=== PATIENT | female | born 1980 | race Caucasian/White ===

== ENCOUNTER 2017-06-12 17:38 | Emergency (ER) | payer OTHER ==
[~2017-06-12] VITALS: Ht 162.6 cm; Wt 73.0 kg
[2017-06-12 17:43] VITALS: PULSE 89; TEMP 36.5; O2SAT 99; Ht 162.6 cm; Wt 73.0 kg
[2017-06-12] MEDS ORDERED: OXYC1TAB3 PO (18:04)
[2017-06-12] MEDS ORDERED: CLIN300C2 PO (18:04)
[2017-06-12] MEDS ORDERED: IBUP-103 PO (18:13)
--- NOTE | 2017-06-12 18:14 | EMERGENCY ROOM VISIT NOTE ---
History First contact with patient: 17:50 Chief Complaint: DENTAL PAIN Stated Complaint: MOUTH,TOOTH AND GUM, JAW AND NECK PAIN Nursing Triage Summary: Pt states she has a cavity on the right lower back tooth and the filling came out. C/O Pain. Saw Sandie Hare and was referred to facial surgeon. History of Present Illness The patient is a 36 year old female who presents to the Emergency Room with complaints of right lower dental pain. The patient reports that she has had discomfort for the past week. She was seen and [facility] this past Wednesday , and was referred to an oral surgeon. She reports that she is awaiting insurance approval. The patient reports that she did start taking some penicillin G antibiotics of her boyfriend. She only took a few days' worth, but does report decreasing facial swelling. The patient denies any fevers or chills, difficulty swallowing or headaches. She does report generalized right facial pain. She rates her discomfort a 10 out of 10. He has been using multiple OTC products without relief, including Tylenol. Review of Systems 10 system review was performed and was negative except for pertinent positives and negatives as indicated in history of present illness Past Medical/Surgical History Medical Problems: (1) Jaw pain (2) Lymphadenitis, acute (3) Malaise and fatigue (4) Malaise and fatigue (5) Methadone maintenance therapy patient (6) Opioid dependence in remission (7) Otalgia of left ear (8) Pyelonephritis (9) Pyelonephritis (10) Right ankle sprain (11) Sinusitis, acute (12) Sinusitis, acute (13) Viral illness Surgical Problems: (1) H/O tubal ligation Social History Problems: (1) IVDU (intravenous drug user) Family History Unremarkable Social History Smoking Status: Current Every Day Smoker Alcohol Use: none Drug Use: none Marital Status: single Housing Status: lives with family Occupation Status: employed Current/Historical Medications Scheduled Clindamycin Hcl (Cleocin), 300 MG PO QID Scheduled PRN Oxycodone Ir (Roxicodone Ir), 1-2 TAB PO Q4H PRN for Pain Physical Exam Vital Signs Date Time Temp Pulse Resp B/P (MAP) Pulse Ox O2 Delivery O2 Flow Rate FiO2 06/12/17 17:43 36.5 89 17 99 Room Air Physical Exam CONSTITUTIONAL: Healthy and well nourished. HEENT: Normocephalic, atraumatic. Pupils equal, round and reactive. No facial edema noted. Ears and nares are clear. OROPHARYNX: The patient has notable destruction of her right mandibular molar # 31. No significant gingival erythema, fluctuance or pointing. No evidence for Damian's angina or retropharyngeal abscess. NECK: Full active range of motion without discomfort. LYMPHATICS: No cervical chain, submandibular or submental adenopathy. RESPIRATORY: Clear to auscultation bilaterally with no wheezing, crackles, rhonchi or stridor. CARDIOVASCULAR: Regular rate and rhythm with no murmurs, rubs or gallops. MUSCULOSKELETAL: Full range of motion of all joints without discomfort. INTEGUMENTARY: No rash or other significant dermatologic conditions noted. NEUROLOGIC: Facial sensations are intact. Medical Decision & Procedures ED Course Patient history and physical exam were performed. Nurse's notes were reviewed. Vital signs were reviewed and were normal. The patient was provided prescriptions for Cleocin and OxyIR 5 mg. She was encouraged to also take ibuprofen and Tylenol in alternating fashion for baseline pain relief. The [place] Prescription Drug Monitoring Program was queried with no history within the past year. The patient was instructed to continue follow-up with her oral surgeon for definitive management. She may also contact her PCP as needed for further antibiotic and pain management. She was advised that the emergency department does not provide dental services, referrals or ongoing dental pain management. The patient voiced understanding of all discharge instructions, and rated her discomfort an 8 out of 10 at the time of discharge. Medical Decision [place] Drug Monitoring Program Search Results: patient reviewed within database, no issues identified Medication Reconcilliation Current Medication List: was personally reviewed by mi Blood Pressure Screening Patient's blood pressure: Normal blood pressure Impression Primary Impression: Pain, dental Departure Information Dispostion Home / Self-Care Prescriptions Oxycodone Ir (Roxicodone Ir) 5 Mg Tab 1-2 TAB PO Q4H Y for Pain, #24 TAB For Initial Treatment Prov: Calixto Porras PA 06/12/17 Clindamycin Hcl (CLEOCIN) 300 Mg Cap 300 MG PO QID for 10 Days, #40 CAP Prov: Calixto Porras PA 06/12/17 Referrals Enedelia Kiser, C.R.N.P (PCP) No Doctor, Assigned Forms HOME CARE DOCUMENTATION FORM, IMPORTANT VISIT INFORMATION Patient Instructions My [facility] Additional Instructions Complete all Cleocin antibiotics as prescribed. Ibuprofen 800 mg and/or Tylenol 1000 mg every 8 hours. You may also alternate these medications for more effective pain relief: Ibuprofen --4 HRS--> Tylenol --4 HRS--> ibuprofen --4 HRS--> Tylenol .... OxyIR if needed for worse pain. Do not drink or drive while taking OxyIR. Soft foods. YOU MUST SEE YOUR ORAL SURGEON FOR DEFINITIVE CARE. THE EMERGENCY DEPARTMENT DOES NOT PROVIDE DENTAL SERVICES, REFERRALS OR CHRONIC DENTAL PAIN MANAGEMENT. YOU MAY ALSO CALL YOUR FAMILY DOCTOR FOR PAIN MANAGEMENT UNTIL YOU SEE YOUR DENTIST.
== END 2017-06-12 18:12 | disposition home or self-care (01) ==
LOC: C.EDB 17:41 → C.EDD 18:12
DX: K08.89 Other specified disorders of teeth and supporting structures (principal); F17.210 Nicotine dependence, cigarettes, uncomplicated; R51 Headache

== ENCOUNTER 2017-07-03 05:44 | Emergency (ER) | payer OTHER ==
[~2017-07-03] VITALS: Ht 165.1 cm; Wt 73.3 kg
[~2017-07-03 05:44] MED LIST: IBUP-103 PO; OXYC1TAB3 PO
[2017-07-03 05:48] VITALS: BP 120/86; PULSE 97; TEMP 36.6; O2SAT 97; Ht 165.1 cm; Wt 73.3 kg
[2017-07-03] MEDS ORDERED: OXYCODONE HCL IR 5 MG TAB (IMMEDIATE RELEASE) PO STA (06:09)
--- NOTE | 2017-07-03 06:11 | EMERGENCY ROOM VISIT NOTE ---
History Report prepared by Kyree: La Kenny Under the Supervision of: Dr. Trev Diaz M.D. First contact with patient: 05:53 Chief Complaint: DENTAL PAIN Stated Complaint: SEVERE TOOTH PAIN,SWELLING,REDDNESS,JAW/NECK PAIN Nursing Triage Summary: Pt reports right lower dental pain x 1 month. Pt states, "I was here about three weeks ago. The abx is all gone. I am getting them surgically removed on . I can't swallow or turn my head." History of Present Illness The patient is a 36 year old female who presents to the Emergency Room with complaints of worsening dental pain starting a month ago. The patient states that she has been here a few times for the pain. She states that she has seen two dentists who said that they cannot pull the teeth that are causing the problem and that they need surgically removed. She reports that she has an appointment to get them removed in five days. She states that she feels like her whole neck and jaw are swollen. She states that the tooth has chipped and she has used all her pain medication. She reports the pain being worse when she bends down and with movement. The patient notes that she has been off an antibiotic off 3 days and thinks that this has something to do with it. The patient complains of difficulty chewing and swallowing food. The patient denies nausea, vomiting, and fever. Source of History: patient Onset: a month ago Position: teeth Quality: other (swollen) Timing: worsening Modifying Factors (Worsening): movement, other (bending over) Associated Symptoms: No fevers, No nausea, No vomiting Note: The patient complains of difficulty swallowing and chewing. Review of Systems See HPI for pertinent positives & negatives. A total of 10 systems reviewed and were otherwise negative. Past Medical & Surgical Medical Problems: (1) Jaw pain (2) Lymphadenitis, acute (3) Malaise and fatigue (4) Malaise and fatigue (5) Methadone maintenance therapy patient (6) Opioid dependence in remission (7) Otalgia of left ear (8) Pyelonephritis (9) Pyelonephritis (10) Right ankle sprain (11) Sinusitis, acute (12) Sinusitis, acute (13) Viral illness Surgical Problems: (1) H/O tubal ligation Social History Problems: (1) IVDU (intravenous drug user) Family History No pertinent family history Social History Smoking Status: Current Every Day Smoker Alcohol Use: none Drug Use: none Marital Status: single Housing Status: lives with family Occupation Status: employed Current/Historical Medications Scheduled Clindamycin Hcl (Cleocin), 300 MG PO QID Scheduled PRN Ibuprofen Tab (Advil), 800 MG PO Q8 PRN for Pain Oxycodone Ir (Roxicodone Ir), 1-2 TAB PO Q4H PRN for Pain Allergies Coded Allergies: No Known Allergies (Verified , 08/07/16) Physical Exam Vital Signs Date Time Temp Pulse Resp B/P (MAP) Pulse Ox O2 Delivery O2 Flow Rate FiO2 07/03/17 05:48 36.6 97 20 120/86 97 Room Air Physical Exam GENERAL: Patient is uncomfortable appearing and in mild distress. HEENT: No acute trauma, normocephalic atraumatic, mucous membranes moist, no nasal congestion, no scleral icterus. Tenderness over right lower jaw and extending under jaw. No fluctuance. No crepitus. No swelling. No protrusion of tongue. Has fractured carious tooth in the right lower jaw. NECK: No stridor, no adenopathy, no meningismus, trachea is midline. Mild tenderness along the right lateral neck without fluctuance nor masses appreciated. LUNGS: No dyspnea. Clear to auscultation and equal bilaterally. No wheeze, no rhonchi. HEART: Regular rate and rhythm. No murmurs, rubs, gallops appreciated. ABDOMEN: Soft, nontender, bowel sounds positive, no masses appreciated, no peritonitis. BACK: No midline tenderness, no CVA tenderness EXTREMITIES: Normal motion all extremities, no cyanosis, no edema. NEUROLOGIC: Alert and oriented, no acute motor or sensory deficits, no focal weakness, cranial nerves grossly intact. SKIN: No rash, no jaundice, no diaphoresis. Medical Decision & Procedures Medications Administered Medications (Trade) Dose Ordered Sig/Nia Route Start Time Stop Time Status Last Admin Dose Admin Oxycodone HCl (Roxicodone Immediate Rel Tab) 5 mg NOW STAT PO 07/03/17 06:09 07/03/17 06:10 DC 07/03/17 06:25 5 MG Clindamycin HCl (Cleocin Cap) 450 mg ONE ONCE PO 07/03/17 06:15 07/03/17 06:16 DC 07/03/17 06:24 450 MG ED Course 0554: The patient was evaluated in room A2. A complete history and physical exam was performed. 0604: I spoke with the patient. She admits that she was addicted to methadone at one time and filled her prescription for Buprenorphine, but hasn't taken it. I stated that I would not be comfortable to send her with narcotics, but would give her a one time dose here and then be monitored. 0609: Ordered Oxycodone HCl 5 mg PO. 0615: Ordered Cleocin Cap 450 mg PO. 0633: Reevaluated the patient. Discussed results and discharge instructions: She verbalized understanding and agreement. The patient is ready for discharge. Medical Decision 36 yr old female with right posterior lower molar fracture for which she was seen 3 weeks ago for same. She is clearly upset with TTP pretty much with palpation of anywhere, but no significant swelling, crepitus, nor abscess appreciated. She does not exhibit evidence of Damian's at this time. She is not septic and she has no evidence of breathing/swallowing dysfunction. I would assume infection has re-occured but without swelling nor other clear findings I do not feel that CT imaging is indicated, nor is there evidence of need to further evaluation airway. On review of PDMP it is clear she has received 2 controlled rx in last few weeks. She furthermore admits long history of drug addiction after I discussed my concerns with her. I made it clear I would be willing to treat her pain while here in ED, but I do not feel it appropriate to further prescribe narcotics in this setting. She was clearly not very happy with this but I explained at length the risk of with these medications, to the point of discussion how it was recently made a National Emergency by the [place] president. She has appointment next week for extraction and I heavily advised she keep that. Medication Reconcilliation Current Medication List: was personally reviewed by me Blood Pressure Screening Patient's blood pressure: Normal blood pressure Blood pressure disposition: Did not require urgent referral Impression Primary Impression: Infected dental caries Scribe Attestation The scribe's documentation has been prepared under my direction and personally reviewed by me in its entirety. I confirm that the note above accurately reflects all work, treatment, procedures, and medical decision making performed by me. Departure Information Dispostion Home / Self-Care Prescriptions Clindamycin Hcl (CLEOCIN) 300 Mg Cap 300 MG PO QID for 10 Days, #40 CAP Prov: Trev Diaz M.D. 07/03/17 Referrals Enedelia Kiser C.R.N.P (PCP) Forms HOME CARE DOCUMENTATION FORM, IMPORTANT VISIT INFORMATION Patient Instructions ED Abscess Dental, My [facility]
[2017-07-03] MEDS ORDERED: CLIN300C2 PO (06:12)
[2017-07-03] MEDS ORDERED: CLINDAMYCIN HCL 150 MG CAP PO ONE (06:15)
== END 2017-07-03 06:32 | disposition home or self-care (01) ==
LOC: C.EDB 05:45 → C.EDA 06:32
DX: K02.9 Dental caries, unspecified (principal); F17.200 Nicotine dependence, unspecified, uncomplicated

== ENCOUNTER 2022-01-26 16:15 | Inpatient (IN) ==
[2022-01-26 17:24] LABS: Appearance Urine Cloudy (Clear); Bacteria Urine Automated 2+ (Negative); Bilirubin Urine Negative (Negative); Blood Urine 2+ (Negative); Color Urine Yellow; Epithelial Cell Urine Auto >30 /lpf (0-5); Glucose Urine UA Negative (Negative); Ketones Urine Negative (Negative); Leukocyte Esterase Urine 1+ (Negative); Nitrite Urine Negative (Negative); Protein Urine Negative (Negative); RBC Urine Automated 0-4 /hpf (0-4); Specific Gravity Urine 1.006 (1.000-1.030); Urobilinogen Urine Negative (Negative); WBC Urine Automated >30 /hpf (0-5); pH Urine 6.5 (4.5-7.5)
[2022-01-26 17:41] LABS: Basophils # (auto) 0.03 K/uL (0-0.2); Basophils % (auto) 0.4 %; Eosinophils # (auto) 0.07 K/uL (0-0.5); Eosinophils % (auto) 0.9 %; Hematocrit (blood only) 41.3 % (37-47); Hemoglobin 14.6 g/dL (12.0-16.0); Immature Granulocytes # (auto) 0.01 K/uL (0.00-0.02); Immature Granulocytes % (auto) 0.1 %; Lymphocytes # (auto) 1.47 K/uL (1.2-3.4); Mean Corpuscular Hemoglobin 31.3 pg (25-34); Mean Corpuscular Hgb Conc 35.4 g/dL (32-36); Mean Corpuscular Volume 88.6 fL (80-100); Mean Platelet Volume 9.7 fL (7.4-10.4); Monocytes # (auto) 0.63 K/uL (0.11-0.59); Monocytes % (auto) 8.2 %; Neutrophils # (auto) 5.52 K/uL (1.4-6.5); Neutrophils % (auto) 71.4 %; Platelet Count 299 K/uL (130-400); RDW Coefficient of Variation 13.1 % (11.5-14.5); RDW Standard Deviation 42.4 fL (36.4-46.3); Red Blood Count 4.66 M/uL (4.2-5.4); White Blood Count 7.73 K/uL (4.8-10.8)
--- NOTE | 2022-01-26 17:58 | Emergency Department Note ---
Impression & Plan Mood disorder, Back pain, Suicidal ideation ED Provider Note NAME: SANTOSH HILLS AGE: 41 SEX: F : 1980 ARRIVES VIA: Walk-In INFORMANT: Patient ED PROVIDER(S): Mihir Gonzalez DO CHIEF COMPLAINT: depression HPI: Patient is a 41-year-old female with a past medical history of an admission to the [facility] for suicidal ideations who presents the ER for 302 petition. She notes that she is very upset as she has had chronic lower back pain for the past week as well as diffuse paresthesias for the past month. Pain does not change with any movement or lifting in the back. She notes it comes and goes with her anxiety. She notes she has been feeling sick and no one can figure out what is wrong with her. She notes she can no longer deal with this. She is unable to go to work. She admits to feeling depressed. 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 She has been evaluated multiple times previously within the past month including CTs of the head and belly which were unremarkable. On a telehealth she may statements that she was going to shoot herself and disconnected. She admits to being worked up extensively. Pain does not change with any movement or lifting. She notes it comes and goes with her anxiety. ROS: See above HPI for pertinent positives & negatives. A total of 10 systems reviewed and were otherwise negative. PAST MEDICAL HISTORY:See Below PAST SURGICAL HISTORY:See Below FAMILY HISTORY:See Below SOCIAL HISTORY:See Below HOME MEDICATIONS:See Below ALLERGIES:See Below VITALS:See Below PHYSICAL EXAMINATION: GENERAL: Sitting up in bed, alert, well appearing, well nourished, no distress, non-toxic EYE EXAM: normal conjunctiva. PERRL and EOM's grossly intact. OROPHARYNX: no exudate, no erythema, lips, buccal mucosa, and tongue normal and mucous membranes are moist NECK: supple, no nuchal rigidity, no adenopathy, non-tender LUNGS: Clear to auscultation. Normal chest wall mechanics HEART: no murmurs, S1 normal and S2 normal ABDOMEN: abdomen soft, non-tender, normo-active bowel sounds, no masses, no rebound or guarding. UPPER EXTREMITIES: upper extremities are grossly normal. LOWER EXTREMITIES: Flexion and extension of the hips, knees, ankles, and EHL 5/5 bilaterally. Gross sensation is intact. DPs are 2/4 bilateral. NEURO EXAM: Normal sensorium, cranial nerves II-XII grossly intact, normal speech, no gross weakness of arms, no gross weakness of legs. PSYCH: Denies any suicidal or homicidal ideations to myself but admits to suicidal thoughts for the past week to her psychiatric rn transitional care. Denies any auditory visual hallucinations. MEDICAL DECISION MAKING: Patient is a 41-year-old female who presents ER for back pain which does not change with twisting turning or bending. She notes it comes and goes with her anxiety. She is completely neurologically intact. No other complaints. Denies suicidal ideations to myself but admitted them to her psychiatric rn transitional care and made suicidal statements to Vishal Velasquez earlier today. But patient showed no significant leukocytosis or anemia. BMP Nicolo LFTs were unremarkable. States was negative. UA was clearly contaminated. She has no urinary symptoms. Recent culture was contaminated earlier several days ago. She has a recent CT of the head was negative. Recent CT of the abdomen pelvis which showed a normal spine. No need for additional imaging at this time. She is neurologically intact. She is medically stable. She was updated at bedside. 302 was signed and she was admitted to 3 S. Triage Nursing notes reviewed. Limited review of prior medical records performed Vital Signs: reviewed and remarkable for tachy Differential diagnosis: Mood disorder, infection, hypoglycemia, electrolyte abnormalities, cardiac sources, intracerebral event, toxicologic, trauma, neurologic, as well as other pathologies. ER treatment provided: See below Diagnostics interpreted by me: ECG: none Laboratory studies: As stated above and show below. Imaging studies: See below Consultation(s): none Procedures: none Critical Care: None Past Med/Surg History Medical History No pertinent family history Pyelonephritis Surgical History No pertinent past surgical history Social History Smoking Status: Current every day smoker Tobacco Type: Cigarettes Preferred Language: Latvian Feels Safe at Home: No Allergies Allergies Allergy/AdvReac Type Severity Reaction Status Date / Time Sulfa (Sulfonamide Allergy Unknown CAN'T Verified 01/24/22 10:56 Antibiotics) REMEMBER Home Meds Home Medications Medication Instructions Recorded Confirmed buprenorphine HCl 8 mg sublingual 2 mg SUBLINGUAL DAILY 12/27/21 01/24/22 tablet nitrofurantoin 100 mg PO DAILY 01/24/22 01/24/22 monohydrate/macrocrystals 100 mg capsule Previous Rx's Medication Instructions Recorded hydroxyzine HCl 25 mg tablet 25 mg PO Q6H PRN #20 tab 01/10/22 Results & Data (ED) Vital Signs Vital Signs - 24 hr 01/26/22 16:32 01/26/22 18:57 Temperature 36.8 C Temperature Source Temporal Artery Scan Pulse Rate 100 H Pulse Rate [Finger] 98 H Pulse Rhythm Regular Pulse Strength Normal Respiratory Rate 20 16 Respiratory Effort / Characteristics Non-Labored Spontaneous Non-Labored Respiratory Depth Normal Normal Respiratory Pattern Regular Blood Pressure 132/88 Blood Pressure [Right Arm] 125/91 Blood Pressure Mean 102 Blood Pressure Mean [Right Arm] 102 Blood Pressure Position Sitting Pulse Oximetry 99 99 Oxygen Delivery Method Room Air Room Air Sepsis Recent Fever Within 48 Hours No Sepsis New/Unexplained Change in Mental Status N/A Sepsis Action Taken by Nursing No Action Required Laboratory Data Result diagrams: 01/26/22 17:23 01/26/22 17:23 Lab Results 01/26/22 01/26/22 01/26/22 Range/Units 16:40 16:40 16:49 WBC (4.8-10.8) K/uL RBC (4.2-5.4) M/uL Hgb (12.0-16.0) g/dL Hct (37-47) % MCV (80-100) fL MCH (25-34) pg MCHC (32-36) g/dL RDW Std Deviation (36.4-46.3) fL RDW Coeff of Gregory (11.5-14.5) % Plt Count (130-400) K/uL MPV (7.4-10.4) fL Immature Gran % (Auto) % Neut % (Auto) % Lymph % (Auto) % [place] % (Auto) % Eos % (Auto) % Baso % (Auto) % Neut # (Auto) (1.4-6.5) K/uL Lymph # (Auto) (1.2-3.4) K/uL [place] # (Auto) (0.11-0.59) K/uL Eos # (Auto) (0-0.5) K/uL Baso # (Auto) (0-0.2) K/uL Immature Gran # (Auto) (0.00-0.02) K/uL Sodium (136-145) mmol/L Potassium (3.5-5.1) mmol/L Chloride (98-107) mmol/L Carbon Dioxide (21-32) mmol/L Anion Gap (3-11) BUN (6-23) mg/dl Creatinine (0.6-1.2) mg/dl Est Cr Clr Drug Dosing ml/min Est GFR ( Amer) ml/min Est GFR (Non-Af Amer) ml/min BUN/Creatinine Ratio (10-20) Glucose (70-99(Fasting)) mg/dl Calcium (8.5-10.1) mg/dl Total Bilirubin (0.2-1.0) mg/dl AST (13-39) U/L ALT (7-52) U/L Alkaline Phosphatase (34-104) U/L Total Protein (6.0-8.3) gm/dl Albumin (3.4-5.0) gm/dl Globulin (2.5-4.0) gm/dl Albumin/Globulin Ratio (0.9-2) TSH (0.300-4.500) uIu/ml Urine Color Yellow Urine Appearance Cloudy A (Clear) Urine pH 6.5 (4.5-7.5) Ur Specific Downing 1.006 (1.000-1.030) Urine Protein Negative (Negative) Urine Glucose (UA) Negative (Negative) Urine Ketones Negative (Negative) Urine Blood 2+ H (Negative) Urine Nitrite Negative (Negative) Urine Bilirubin Negative (Negative) Urine Urobilinogen Negative (Negative) Ur Leukocyte Esterase 1+ H (Negative) Urine WBC (Auto) >30 H (0-5) /hpf Urine RBC (Auto) 0-4 (0-4) /hpf U Hyaline Cast (Auto) Not Reportable U Epithel Cells (Auto) >30 H (0-5) /lpf Urine Bacteria (Auto) 2+ H (Negative) POC Ur Test NEG (NEG) Salicylates (3.0-30) mg/dl Urine Opiates Screen Neg (Neg) Ur Methadone, Qual Neg (Neg) Acetaminophen (10-30) ug/ml Urine Barbiturates Neg (Neg) Ur Phencyclidine (PCP) Neg (Neg) U Amphetamin/Meth Scrn Pos H (Neg) MDMA (Ecstasy) Screen Neg (Neg) U Benzodiazepines Scrn Neg (Neg) Ur Cocaine Metabolite Neg (Neg) U Marijuana (THC) Screen Neg (Neg) Ethyl Alcohol mg/dL (<10.0) mg/dl SARS-CoV-2, RNA, NAAT (NEGATIVE) 01/26/22 01/26/22 01/26/22 Range/Units 17:23 17: 17: WBC 7.73 (4.8-10.8) K/uL RBC 4.66 (4.2-5.4) M/uL Hgb 14.6 (12.0-16.0) g/dL Hct 41.3 (37-47) % MCV 88.6 (80-100) fL MCH 31.3 (25-34) pg MCHC 35.4 (32-36) g/dL RDW Std Deviation 42.4 (36.4-46.3) fL RDW Coeff of Gregory 13.1 (11.5-14.5) % Plt Count 299 (130-400) K/uL MPV 9.7 (7.4-10.4) fL Immature Gran % (Auto) 0.1 % Neut % (Auto) 71.4 % Lymph % (Auto) 19.0 % [place] % (Auto) 8.2 % Eos % (Auto) 0.9 % Baso % (Auto) 0.4 % Neut # (Auto) 5.52 (1.4-6.5) K/uL Lymph # (Auto) 1.47 (1.2-3.4) K/uL [place] # (Auto) 0.63 H (0.11-0.59) K/uL Eos # (Auto) 0.07 (0-0.5) K/uL Baso # (Auto) 0.03 (0-0.2) K/uL Immature Gran # (Auto) 0.01 (0.00-0.02) K/uL Sodium 140 (136-145) mmol/L Potassium 3.7 (3.5-5.1) mmol/L Chloride 107 (98-107) mmol/L Carbon Dioxide 26 (21-32) mmol/L Anion Gap 7 (3-11) BUN 7 (6-23) mg/dl Creatinine 0.72 (0.6-1.2) mg/dl Est Cr Clr Drug Dosing 85.1 ml/min Est GFR ( Amer) 120.6 ml/min Est GFR (Non-Af Amer) 104.0 ml/min BUN/Creatinine Ratio 9.7 L (10-20) Glucose 90 (70-99(Fasting)) mg/dl Calcium 9.6 (8.5-10.1) mg/dl Total Bilirubin 1.2 H (0.2-1.0) mg/dl AST 11 L (13-39) U/L ALT 11 (7-52) U/L Alkaline Phosphatase 67 (34-104) U/L Total Protein 7.3 (6.0-8.3) gm/dl Albumin 4.5 (3.4-5.0) gm/dl Globulin 2.8 (2.5-4.0) gm/dl Albumin/Globulin Ratio 1.6 (0.9-2) TSH 1.474 (0.300-4.500) uIu/ml Urine Color Urine Appearance (Clear) Urine pH (4.5-7.5) Ur Specific Downing (1.000-1.030) Urine Protein (Negative) Urine Glucose (UA) (Negative) Urine Ketones (Negative) Urine Blood (Negative) Urine Nitrite (Negative) Urine Bilirubin (Negative) Urine Urobilinogen (Negative) Ur Leukocyte Esterase (Negative) Urine WBC (Auto) (0-5) /hpf Urine RBC (Auto) (0-4) /hpf U Hyaline Cast (Auto) U Epithel Cells (Auto) (0-5) /lpf Urine Bacteria (Auto) (Negative) POC Ur Test (NEG) Salicylates (3.0-30) mg/dl Urine Opiates Screen (Neg) Ur Methadone, Qual (Neg) Acetaminophen (10-30) ug/ml Urine Barbiturates (Neg) Ur Phencyclidine (PCP) (Neg) U Amphetamin/Meth Scrn (Neg) MDMA (Ecstasy) Screen (Neg) U Benzodiazepines Scrn (Neg) Ur Cocaine Metabolite (Neg) U Marijuana (THC) Screen (Neg) Ethyl Alcohol mg/dL (<10.0) mg/dl SARS-CoV-2, RNA, NAAT (NEGATIVE) 01/26/22 01/26/22 01/26/22 Range/Units 17:23 17:23 20:43 WBC (4.8-10.8) K/uL RBC (4.2-5.4) M/uL Hgb (12.0-16.0) g/dL Hct (37-47) % MCV (80-100) fL MCH (25-34) pg MCHC (32-36) g/dL RDW Std Deviation (36.4-46.3) fL RDW Coeff of Gregory (11.5-14.5) % Plt Count (130-400) K/uL MPV (7.4-10.4) fL Immature Gran % (Auto) % Neut % (Auto) % Lymph % (Auto) % [place] % (Auto) % Eos % (Auto) % Baso % (Auto) % Neut # (Auto) (1.4-6.5) K/uL Lymph # (Auto) (1.2-3.4) K/uL [place] # (Auto) (0.11-0.59) K/uL Eos # (Auto) (0-0.5) K/uL Baso # (Auto) (0-0.2) K/uL Immature Gran # (Auto) (0.00-0.02) K/uL Sodium (136-145) mmol/L Potassium (3.5-5.1) mmol/L Chloride (98-107) mmol/L Carbon Dioxide (21-32) mmol/L Anion Gap (3-11) BUN (6-23) mg/dl Creatinine (0.6-1.2) mg/dl Est Cr Clr Drug Dosing ml/min Est GFR ( Amer) ml/min Est GFR (Non-Af Amer) ml/min BUN/Creatinine Ratio (10-20) Glucose (70-99(Fasting)) mg/dl Calcium (8.5-10.1) mg/dl Total Bilirubin (0.2-1.0) mg/dl AST (13-39) U/L ALT (7-52) U/L Alkaline Phosphatase (34-104) U/L Total Protein (6.0-8.3) gm/dl Albumin (3.4-5.0) gm/dl Globulin (2.5-4.0) gm/dl Albumin/Globulin Ratio (0.9-2) TSH (0.300-4.500) uIu/ml Urine Color Urine Appearance (Clear) Urine pH (4.5-7.5) Ur Specific Downing (1.000-1.030) Urine Protein (Negative) Urine Glucose (UA) (Negative) Urine Ketones (Negative) Urine Blood (Negative) Urine Nitrite (Negative) Urine Bilirubin (Negative) Urine Urobilinogen (Negative) Ur Leukocyte Esterase (Negative) Urine WBC (Auto) (0-5) /hpf Urine RBC (Auto) (0-4) /hpf U Hyaline Cast (Auto) U Epithel Cells (Auto) (0-5) /lpf Urine Bacteria (Auto) (Negative) POC Ur Test (NEG) Salicylates < 3.0 L (3.0-30) mg/dl Urine Opiates Screen (Neg) Ur Methadone, Qual (Neg) Acetaminophen < 3 L (10-30) ug/ml Urine Barbiturates (Neg) Ur Phencyclidine (PCP) (Neg) U Amphetamin/Meth Scrn (Neg) MDMA (Ecstasy) Screen (Neg) U Benzodiazepines Scrn (Neg) Ur Cocaine Metabolite (Neg) U Marijuana (THC) Screen (Neg) Ethyl Alcohol mg/dL < 10.0 (<10.0) mg/dl SARS-CoV-2, RNA, NAAT NEGATIVE (NEGATIVE) Discharge Plan Visit Data Chief Complaint: Mental Health Evaluation Stated Complaint: [place], BACK FEELS HOT, BACK PAIN ED Provider: Mihir Gonzalez Discharge Problem: Mood disorder, Back pain, Suicidal ideation Forms Stand Alone Forms: [facility], Suicide Prevention Resources Prescriptions Prescriptions: No Action nitrofurantoin monohyd/m-cryst 100 mg capsule 100 mg PO DAILY RF: 0 buprenorphine HCl [Subutex] 8 mg Tablet, Sublingual 2 mg SUBLINGUAL DAILY RF: 0 hydroxyzine HCl 25 mg tablet 25 mg PO Q6H PRN (Reason: itching) Qty: 20 RF: 0 Referrals Referrals: Slick Grande DO [Primary Care Provider] - Discharge Problem: Back pain Qualifiers: Back pain location: low back pain Chronicity: acute Back pain laterality: unspecified Sciatica presence: unspecified whether sciatica present Qualified Code(s): M54.50 - Low back pain, unspecified
[2022-01-26 18:20] LABS: Acetaminophen < 3 ug/ml (10-30); Salicylate < 3.0 mg/dl (3.0-30)
[2022-01-26 18:21] LABS: Albumin Globulin Ratio 1.6 (0.9-2); Albumin Level 4.5 gm/dl (3.4-5.0); BUN Creatinine Ratio 9.7 (10-20); Bilirubin,Total 1.2 mg/dl (0.2-1.0); Calcium 9.6 mg/dl (8.5-10.1); Creatinine Clr Calc Pharmacy 85.1 ml/min; Est GFR (African American) 120.6 ml/min; Globulin 2.8 gm/dl (2.5-4.0); Potassium 3.7 mmol/L (3.5-5.1); Total Protein 7.3 gm/dl (6.0-8.3)
[2022-01-26 20:26] LABS: Amphetamines+Metham, Urine Pos (Neg); Barbiturates, Urine Neg (Neg); Benzodiazepine, Urine Neg (Neg); Cocaine, Urine Neg (Neg); MDMA (Ecstacy), Urine Neg (Neg); Methadone, Urine Neg (Neg); Opiate, Urine Neg (Neg); Phencyclidine, Urine Neg (Neg)
[2022-01-27] MEDS ORDERED: MAGNESIUM HYDROXIDE SUSP 30 ML UDC PO PRN (00:14)
[2022-01-27] MEDS ORDERED: hydrOXYzine HCl 25 MG TAB PO PRN (00:14)
[2022-01-27] MEDS ORDERED: ALUMINUM/MAGNESIUM SUSP 30 ML UDC PO PRN (00:14)
[2022-01-27] MEDS ORDERED: BISMUTH SUBSALICYLATE LIQD 236 ML PO PRN (00:14)
[2022-01-27] MEDS ORDERED: SODIUM CHLORIDE 0.65% NA SOLN 45 ML (OCEAN) PRN (00:14)
[2022-01-27] MEDS ORDERED: haloperidoL 5 MG TAB PO PRN (00:15)
[2022-01-27] MEDS: hydrOXYzine HCl 25 MG TAB PO PRN (01:22)
[2022-01-27] MEDS: ACETAMINOPHEN 325 MG TAB PO PRN ×2 (09:47→18:45)
[2022-01-27] MEDS ORDERED: OLANZAPINE 2.5 MG TAB PO PRN (11:03)
[2022-01-27] MEDS ORDERED: cloNIDine HCL 0.1 MG TAB PO PRN (11:04)
[2022-01-27] MEDS ORDERED: DIPHENOXYLATE/ATROPINE 2.5/0.025MG TAB PO PRN (11:04)
[2022-01-27] MEDS ORDERED: OLANZAPINE 2.5 MG TAB PO ONE (11:05)
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
[2022-01-28] MEDS ORDERED: GABAPENTIN 100 MG CAP PO ONE (11:20)
[2022-01-28] MEDS: GABAPENTIN 100 MG CAP PO SCH ×2 (14:11→22:11)
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
[2022-01-28] MEDS: hydrOXYzine HCl 25 MG TAB PO PRN (22:11)
[2022-01-29] MEDS: GABAPENTIN 100 MG CAP PO SCH ×3 (08:54→21:30)
[2022-01-29 09:31] LABS: Amphetamine Urine, Confirm 1090 ng/mL (<250); Methamphetamine, Ur Confirm 3340 ng/mL (<250)
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
[2022-01-29] MEDS: POLYETHYLENE (MIRALAX) 17 GM PACK PO SCH (14:06)
[2022-01-29] MEDS: DOCUSATE SODIUM 100 MG CAP PO SCH ×2 (14:06→21:31)
[2022-01-29] MEDS: hydrOXYzine HCl 25 MG TAB PO PRN (23:22)
[2022-01-30] MEDS: POLYETHYLENE (MIRALAX) 17 GM PACK PO SCH (07:49)
[2022-01-30] MEDS: GABAPENTIN 100 MG CAP PO SCH (07:51)
[2022-01-30] MEDS: DOCUSATE SODIUM 100 MG CAP PO SCH (07:52)
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
== END 2022-01-30 11:45 | disposition home or self-care (01) | DRG 897 ==
LOC: ED 16:15 → 3S 23:19

== ENCOUNTER 2022-02-25 11:27 | Inpatient (IN) ==
--- NOTE | 2022-02-25 12:30 | Emergency Department Note ---
Impression & Plan Abdominal pain ADMIT ED Provider Note HPI: The patient is a 41-year-old female who presents the emergency department with chief complaint of right upper quadrant pain. Patient states that she has had this pain ongoing for several weeks. Patient states she had an ultrasound image done of her gallbladder about 12 days ago that showed contracted gallbladder without any evidence of cholecystitis or gallstones. Patient states that she was to follow-up as an outpatient with general surgery but is yet to do so. Patient states she had an increase in her pain this morning therefore came to the ED for further assessment. ROS: -GI: Acute on chronic right upper quadrant abdominal pain *10 point review systems was conducted and is otherwise negative unless stated a gianni *Outpatient medications and allergy history reviewed PE: General: Alert, NAD HEENT: Normocephalic, atraumatic Eyes: Extraocular eye movement is intact, no scleral erythema Pulmonary: Clear to auscultation bilaterally, no wheezing Cardio: Regular rate and rhythm GI: Abdomen is soft, there is right upper quadrant tenderness to palpation without guarding or rigidity : No suprapubic tenderness MSK: No evidence of trauma or malformation of the extremities, no edema Skin: No evidence of rash Neuro: Alert, no focal deficits Psychiatric: Cooperative case monitor: - An order was placed for continuous cardiac monitoring - Patient was noted to be in sinus rhythm with rate of 80 Medical Decision Making: Patient presented to the emergency department with some acute on chronic right upper quadrant abdominal pain. This is in the setting of outpatient work-up that has yet to be completed, she does follow-up with [facility] gastroenterology and has outpatient imaging pending. Patient's lab work is reassuring here in the ED today, bilirubin is slightly elevated at 1.5 however this is the same per her lab work 11 days ago. Ultrasound imaging was repeated here today and shows evidence of common bile duct dilation at 8 mm. No evidence of acute cholecystitis. On my reassessment following pain medication patient states she is still uncomfortable, states that she does not feel comfortable with discharge. I discussed the case with on-call [facility] GI midlevel provider Mir Cameron, will plan for admission with GI consultation likely for MRCP to be formed either later today or tomorrow. Patient was in agreement to this plan and states she prefers admission. Case was discussed with the on-call [facility] hospitalist service and the patient was admitted in stable condition for further care. Diagnosis: 1. RUQ abdominal pain, acute 2. Dilated common bile duct on ultrasound imaging Disposition: Admission Jimi Razo DO Emergency Medicine Past Med/Surg History Medical History Back pain Back pain No pertinent family history Pyelonephritis Suicidal ideation Surgical History No pertinent past surgical history Social History Smoking Status: Current every day smoker Tobacco Type: Cigarettes Preferred Language: Bulgarian Communication Ability: Effective Furnace Keeper Required: No Beliefs That Will Affect Care: None Feels Safe at Home: Yes Assistive Devices: None Allergies Allergies Allergy/AdvReac Type Severity Reaction Status Date / Time Sulfa (Sulfonamide Allergy Unknown CAN'T Verified 02/13/22 13:55 Antibiotics) REMEMBER Home Meds Previous Rx's Medication Instructions Recorded Saccharomyces boulardii 250 mg 250 mg PO BID #20 cap 02/13/22 capsule (Florastor) dicyclomine 20 mg tablet 20 mg PO QID #20 tab 02/13/22 famotidine 20 mg tablet 20 mg PO BID #20 tab 02/13/22 sucralfate 100 mg/mL oral 10 ml PO QID #420 ml 02/13/22 suspension (Carafate) Results & Data (ED) Vital Signs Vital Signs - 24 hr 02/25/22 11:31 02/25/22 13:30 Temperature 36.4 C L Temperature Source Oral Pulse Rate 111 H Pulse Rate [Right Finger] 77 Pulse Rhythm [Right Finger] Regular Pulse Strength [Right Finger] Normal Respiratory Rate 16 16 Respiratory Effort / Characteristics Non-Labored Spontaneous Respiratory Depth Normal Respiratory Pattern Regular Blood Pressure 115/78 Blood Pressure [Right Arm] 115/98 Blood Pressure Mean 90 Blood Pressure Mean [Right Arm] 103 Blood Pressure Position [Right Arm] Sitting Pulse Oximetry 98 100 Oxygen Delivery Method Room Air Room Air Sepsis Recent Fever Within 48 Hours No Sepsis New/Unexplained Change in Mental Status No Sepsis Action Taken by Nursing No Action Required Laboratory Data Result diagrams: 02/25/22 12:35 02/25/22 12:35 Lab Results 06/22/22 06/22/22 06/22/22 Range/Units 12:35 12:35 12:35 WBC 5.72 (4.8-10.8) K/uL RBC 4.86 (4.2-5.4) M/uL Hgb 14.9 (12.0-16.0) g/dL Hct 43.1 (37-47) % MCV 88.7 (80-100) fL MCH 30.7 (25-34) pg MCHC 34.6 (32-36) g/dL RDW Std Deviation 42.6 (36.4-46.3) fL RDW Coeff of Gregory 13.1 (11.5-14.5) % Plt Count 278 (130-400) K/uL MPV 10.0 (7.4-10.4) fL Immature Gran % (Auto) 0.3 % Neut % (Auto) 69.7 % Lymph % (Auto) 20.6 % Seneca % (Auto) 7.7 % Eos % (Auto) 1.4 % Baso % (Auto) 0.3 % Neut # (Auto) 3.98 (1.4-6.5) K/uL Lymph # (Auto) 1.18 L (1.2-3.4) K/uL Seneca # (Auto) 0.44 (0.11-0.59) K/uL Eos # (Auto) 0.08 (0-0.5) K/uL Baso # (Auto) 0.02 (0-0.2) K/uL Immature Gran # (Auto) 0.02 (0.00-0.02) K/uL Sodium 137 (136-145) mmol/L Potassium 4.0 (3.5-5.1) mmol/L Chloride 106 (98-107) mmol/L Carbon Dioxide 25 (21-32) mmol/L Anion Gap 6 (3-11) BUN 14 (6-23) mg/dl Creatinine 0.70 (0.6-1.2) mg/dl Est Cr Clr Drug Dosing 89.4 ml/min Est GFR ( Amer) 124.7 ml/min Est GFR (Non-Af Amer) 107.6 ml/min BUN/Creatinine Ratio 20.0 (10-20) Glucose 85 (70-99(Fasting)) mg/dl Calcium 9.1 (8.5-10.1) mg/dl Total Bilirubin 1.5 H (0.2-1.0) mg/dl AST 11 L (13-39) U/L ALT 10 (7-52) U/L Alkaline Phosphatase 75 (34-104) U/L Total Protein 6.8 (6.0-8.3) gm/dl Albumin 4.2 (3.4-5.0) gm/dl Globulin 2.6 (2.5-4.0) gm/dl Albumin/Globulin Ratio 1.6 (0.9-2) Lipase 18 (11-82) U/L HCG, Qual Negative (Negative) Imaging Data Radiologist's Impression: Gallbladder Ultrasound 02/25/22 12:28 US gallbladder HISTORY: 41 years-old Female RUQ pain . Right upper quadrant abdominal pain COMPARISON: 02/14/2022 TECHNIQUE: Multiple real-time sonographic images of the abdominal right upper quadrant were obtained assessing grayscale appearance and color flow FINDINGS: The visualized pancreas is unremarkable. The liver is within normal limits. Unremarkable gallbladder without cholelithiasis, wall thickening or pericholecystic fluid. Negative sonographic Sharif's sign. The common bile duct measures 8 mm. No intrahepatic biliary ductal dilation. Unremarkable sonographic appearance of the right kidney. IMPRESSION: 1. Normal sonographic appearance of the gallbladder. 2. The common bile duct is slightly dilated at 8 mm. Correlation with serum bilirubin recommended. ACT 112: Negative or not required by law. The above report was generated using voice recognition software. It may contain grammatical, syntax or spelling errors. Electronically signed by: Beau Love M.D. 02/25/2022 1:13 PM Discharge Plan Visit Data Chief Complaint: Abdominal Pain Stated Complaint: ABDOM PAIN, REF FOR GALLBLADDER ED Provider: Jimi Razo Discharge Problem: Abdominal pain Forms Stand Alone Forms: LRN Prescriptions Prescriptions: No Action sucralfate [Carafate] 100 mg/mL suspension 10 ml PO QID Qty: 420 RF: 0 famotidine 20 mg tablet 20 mg PO BID Qty: 20 RF: 0 dicyclomine 20 mg tablet 20 mg PO QID Qty: 20 RF: 0 Saccharomyces boulardii [Florastor] 250 mg capsule 250 mg PO BID Qty: 20 RF: 0 Referrals Referrals: Keiter,Alvarado K., DO [Primary Care Provider] - Discharge Problem: Abdominal pain Qualifiers: Abdominal location: right upper quadrant Qualified Code(s): R10.11 - Right upper quadrant pain
--- NOTE | 2022-02-25 13:14 | Ultrasound Report ---
US gallbladder HISTORY: 41 years-old Female RUQ pain . Right upper quadrant abdominal pain COMPARISON: 02/14/2022 TECHNIQUE: Multiple real-time sonographic images of the abdominal right upper quadrant were obtained assessing grayscale appearance and color flow FINDINGS: The visualized pancreas is unremarkable. The liver is within normal limits. Unremarkable gallbladder without cholelithiasis, wall thickening or pericholecystic fluid. Negative sonographic Sharif's sign. The common bile duct measures 8 mm. No intrahepatic biliary ductal dilation. Unremarkable sonographic appearance of the right kidney. IMPRESSION: 1. Normal sonographic appearance of the gallbladder. 2. The common bile duct is slightly dilated at 8 mm. Correlation with serum bilirubin recommended. ACT 112: Negative or not required by law. The above report was generated using voice recognition software. It may contain grammatical, syntax o r spelling errors. Electronically signed by: Beau Love M.D. 02/25/2022 1:13 PM
[2022-02-25 13:18] LABS: Pregnancy Test, Serum Negative (Negative)
[2022-02-25 13:25] LABS: Albumin Globulin Ratio 1.6 (0.9-2); Albumin Level 4.2 gm/dl (3.4-5.0); Bilirubin,Total 1.5 mg/dl (0.2-1.0); Calcium 9.1 mg/dl (8.5-10.1); Creatinine Clr Calc Pharmacy 89.4 ml/min; Est GFR (African American) 124.7 ml/min; Est GFR (Non-African American) 107.6 ml/min; Globulin 2.6 gm/dl (2.5-4.0); Total Protein 6.8 gm/dl (6.0-8.3)
[2022-02-25 13:52] LABS: Basophils # (auto) 0.02 K/uL (0-0.2); Basophils % (auto) 0.3 %; Eosinophils # (auto) 0.08 K/uL (0-0.5); Eosinophils % (auto) 1.4 %; Hematocrit (blood only) 43.1 % (37-47); Hemoglobin 14.9 g/dL (12.0-16.0); Immature Granulocytes # (auto) 0.02 K/uL (0.00-0.02); Immature Granulocytes % (auto) 0.3 %; Lymphocytes # (auto) 1.18 K/uL (1.2-3.4); Lymphocytes % (auto) 20.6 %; Mean Corpuscular Hemoglobin 30.7 pg (25-34); Mean Corpuscular Hgb Conc 34.6 g/dL (32-36); Mean Corpuscular Volume 88.7 fL (80-100); Monocytes # (auto) 0.44 K/uL (0.11-0.59); Monocytes % (auto) 7.7 %; Neutrophils # (auto) 3.98 K/uL (1.4-6.5); Neutrophils % (auto) 69.7 %; Platelet Count 278 K/uL (130-400); RDW Coefficient of Variation 13.1 % (11.5-14.5); RDW Standard Deviation 42.6 fL (36.4-46.3); Red Blood Count 4.86 M/uL (4.2-5.4); White Blood Count 5.72 K/uL (4.8-10.8)
[2022-02-25] MEDS ORDERED: LACTATED RINGER'S 1,000 ML IV SCH (15:15)
[2022-02-25] MEDS ORDERED: KETOROLAC 30 MG/ML VIAL IV ONE (15:16)
[2022-02-25] MEDS ORDERED: PIPERACILLIN/TAZOBACTAM 4.5 GM/120 ML BAG IV ONE (15:18)
--- NOTE | 2022-02-25 15:30 | Gastrointestinal Consultation ---
Date of Consultation February 25, 2022 Assessment & Plan (1) Abdominal pain: She has RUQ pain, weight loss and an US showed a normal GB but mild biliary ductal dilation. Will r/o bile duct obstruction by MRCP. Definitely, some of her pain is from costochondritis as she has point tenderness on a right rib. Also definitely some emotional/psych overlap. Was a little tearful when we were talking - telling me that she had a recent break up with a boyfriend. Has OP EGD abner March 05 and would recommend trying to keep that appt. May have a liquid diet after the MRCP. Will further eval tomorrow morning. Supervising Physician Co-Signing Physician Notes Consult for ruq pain with cbd of 8 mm on imaging, nl lft's, tb of 1.5 Abd exam sig for mild ruq pain, no rebound or ttp Abd chloe without a dodge's sign noted MRCP. Agree with further plan of care. History of Present Illness Reason for Consultation: abdominal pain, dilated bile duct Requesting Physician: Dr. Ramos Attending Physician: [facility] History of Present Illness Ms. Renu Montemayor is a 41 yr old female pt of Dr. Daniela schultz a hx of back pain, pyelonephritis, depression who presented to the ED today for acute on chronic adominal pain. US of the gallbladder is normal but a slightly dilated CBD was noted at 8mm. T Bili is 1.5, but LFTs, WBC and lipase are otherwise normal. A review of [facility] records shows that her PCP had arranged an OP EGD for abd pain, scheduled for March 05. She also has a new GI appt schedule for March 02 w Susan Chaves PA-C. OP labs show a mildly elevated WBC at 11 on February 04, otherwise CBC, CMP normal including normal LFTs. A recent OP pelvic US did not show cause of her pain. The pt reports that she had a UTI in mid December and has not felt well since then. She has had right upper abd pain since that time, which has become severe and persistent in the past 2 days. She has nausea and in the past 4 days has had vomiting. She recalls passing black loose BMs for a few days about 4 wks ago. She has felt constipated but has been passing a brown, small formed BM every 1-2 days. She is not able to bear down to defecate because her RUQ pain becomes unbearable if she does this. She has not had any fevers, chills, sweats. She has had a psych admission recently but is not on any psych meds. She has had various non GI symptoms including "just not feeling well, something is definitely wrong," also reports double vision, mental fogginess and may have worsened RUQ pain, worsened nausea if she eats something fatty. She has lost 14 lbs since December, unintentionally, stating that she has a bad taste from foods and that she is afraid to eat because it worsens her nausea and pain. Allergies Allergy/AdvReac Type Severity Reaction Status Date / Time Sulfa (Sulfonamide Allergy Unknown CAN'T Verified 02/25/22 15:38 Antibiotics) REMEMBER Home Medications Medication Instructions Recorded Confirmed Type No Known Home Medications 02/25/22 02/25/22 History Patient History Medical History (Updated 02/25/22 @ 15:05 by Rebekah Hutchinson PA-C) Back pain Back pain No pertinent family history Pyelonephritis Suicidal ideation Surgical History (Updated 02/25/22 @ 15:05 by Rebekah Hutchinson PA-C) History of tubal ligation Family History (Updated 02/25/22 @ 15:07 by Rebekah Hutchinson PA-C) Grandfather (Maternal) Cancer Social History (Updated 02/25/22 @ 15:07 by Rebekah Hutchinson PA-C) Smoking Status: Current some day smoker Tobacco Type: Cigarettes Years Smoked: 8; Preferred Language: Swedish Communication Ability: Effective Bioinformaticist Required: No Beliefs That Will Affect Care: None marital status: Single current occupational status: employed current occupation: [employer] Feels Safe at Home: Yes Assistive Devices: None Review of Systems Review of Systems: ROS: Gen: + weight loss Describes "not being well," but denies weakness, fevers Eyes: No eye redness, or pain, no recent vision changes Resp: No SOB, no cough Cardio: + palpitations/irregular beats, no chest pain GI: As per HPI : Denies pain on urination Skin: No jaundice, itching or new rashes A total of 12 systems were reviewed, all others (-) Physical Exam Constitutional: well developed, + thin, well groomed and cooperative Eyes: PERRL, conjunctivae normal, anicteric sclerae ENMT: external ear and nose normal, oropharynx normal Respiratory: normal respiratory effort, lungs clear to auscultation Cardiovascular: RRR, no murmur, no edema Gastrointestinal (Abdomen): Inspection/Auscultation: abdomen normal to inspection and normal bowel sounds; abdomen not distended and no abdominal edema Percussion/Palpation: abdomen soft; abdomen not rigid Pt tender over the entire abdomen; moderate tenderness in the RUQ Musculoskeletal: point tenderness on the 11th rib at the axillary line. More tender here than on palpation of the RUQ Skin: no rashes, warm and dry normal turgor Neurologic: PERRL, EOMI, accommodation nl, no face palsy, no dysarthria awake; not confused Psychiatric: A+Ox3, euthymic affect Lymphatic: no cervical or axillary lymphadenopathy Results & Data ([facility]) Vital Signs (Past 12 Hours) Vital Signs Temp Pulse Pulse Resp BP BP Pulse Ox 02/25/22 14:50 77 18 130/76 98 02/25/22 13:30 77 16 115/98 100 02/25/22 11:31 36.4 C L 111 H 16 115/78 98 Laboratory Results WBC 5, Hb 14.9, Hct 43.1, Plts 278, Na 137, 4.0, Cl 106, CO2 25, BN 14, Cr 0.7, glucose 85. T Bili 1.5, AST 11, ALT 10, Alk Phos 75 HCG (-), COVID (-) Diagnostic Findings US 02/25/22: 1. Normal sonographic appearance of the gallbladder. 2. The common bile duct is slightly dilated at 8 mm. Correlation with serum bilirubin recommended. (1) Abdominal pain Abdominal location: right upper quadrant Qualified Code(s): R10.11 - Right upper quadrant pain
[2022-02-25] MEDS ORDERED: LORazepam 2 MG/1 ML VIAL ONE (16:22)
--- NOTE | 2022-02-25 17:10 | History & Physical Report ---
Date of Service February 25, 2022 Assessment & Plan (1) Abdominal pain: (2) Mood disorder: (3) History of narcotic addiction: Plan: Abdominal Pain Hyperbilirubinemia CBD dilatation ?if gallbladder pathology RUQ US: 8mm cbd dilation, T bili 1.5 consistently over last several weeks MRCP pending Gastroenterology consulted Scheduled for OP EGD on 03/[address] Fang General surgery as OP, if EGD negative plan for possible Lap wilian pt also reports weight loss, nausea and inability to eat give gentle hydration LR @ 80cc/hr will empirically tx with IV zosyn for now until biliary obstruction ruled out can have clear liquids after MRCP; NPO after midnight IV toradol prn pain, or oral APAP Absolutely NO NARCOTICS given prior hx of narcotic addiction Mood disorder recently hosp in psych dept for substance induced mood d/o felt to be 2/2 to possible w/drawl from abruptly stopping her buprenorphine currently not on any psych meds I do feel pt has underlying psych component to her sx Hx of narcotic addiction avoid narcs recently took herself of buprenorphine ~ 1 month ago DVT ppx: SCDS Dispo: med/surg PCP: Jenny Suarez FULL CODE Pt was seen and examined in collaboration with Dr. Obando, please see addendum Admission and Anticipated Discharge Date Admission Date: February 25, 2022 History of Present Illness Chief Complaint: Abd pain x 7 weeks. Primary Care Provider: Jenny Suarez, DO This is a 41-year-old female with history of previous opioid abuse and addiction, tobacco abuse who presents to ED secondary to abdominal pain x7 weeks. Patient has been seen emergency room multiple times over the last month. She also recently had a psychiatric admission from 01/26 to 01/30-second due to substance-induced mood disorder. She is a prior history of narcotic addiction and approximately 1 month ago stopped taking her buprenorphine. She stopped taking it due to having this right upper quadrant abdominal pain, although pain continue despite stopping medication. She also stopped all prescription medications including bentyl, Pepcid, and Carafate. She was seen in the outpatient setting and outpatient work-up has been arranged for gallbladder disease. Due to pain worsening she presented to ED today. Pain is located in the right upper quadrant with radiation around back and into right shoulder. She states pain is constant, 10 out of 10, nothing makes better, is unsure if made worse with meals, complains of constant nausea but denies vomiting. She denies sari colored stools. She fears moving her bowels due to pain but denies any hemorrhoids, melena or hematochezia. She further denies any fever, chills, sweats, lightheadedness, dizziness, chest pain, shortness breath, cough, URI symptoms, dysuria, increased urgency or frequency with urination or hematuria. She has not tried anything for pain at home. In ED patient remained hemodynamically stable. Lab work revealed elevated bilirubin at 1.5. Right upper quadrant ultrasound did reveal dilated CBD at 8 mm. Gastroenterology was consulted who recommended MRCP. She is scheduled for EGD on 03/05/2022. She also established with [facility] surgery Dr. Fang. His concern was possible gastritis or ulcer and that is why EGD was scheduled. She also completed a 5 day course of augmentin recently but she is unsure why. Allergies Allergy/AdvReac Type Severity Reaction Status Date / Time Sulfa (Sulfonamide Allergy Unknown CAN'T Verified 02/25/22 15:38 Antibiotics) REMEMBER Home Medications Medication Instructions Recorded Confirmed Type No Known Home Medications 02/25/22 02/25/22 History Past Med/Surg History Medical History (Updated 02/25/22 @ 17:11 by Rebekah Hutchinson PA-C) Back pain History of narcotic addiction Polysubstance abuse Pyelonephritis Substance induced mood disorder Suicidal ideation Tobacco abuse Surgical History History of tubal ligation Family History Grandfather (Maternal) Cancer Social History Smoking Status: Current some day smoker Tobacco Type: Cigarettes Years Smoked: 8; Second Hand Exposure: Yes; Do You Dip or Chew Tobacco: No; Tobacco Cessation Education Requested by Patient: No Hx Alcohol Use: No Hx Substance Use: No Preferred Language: Urdu Communication Ability: Effective Psych Therapist Required: No Beliefs That Will Affect Care: None marital status: Single Current Living Situation: Alone current occupational status: employed current occupation: [employer] Other Information That Helps Us Care for You: No Feels Safe at Home: Yes Assistive Devices: None Review of Systems Review of Systems: All systems reviewed & are unremarkable except as noted in HPI & below Physical Exam Physical Exam: Constitutional: WD/WN, vitals as above, NAD, sitting up in bed, pleasant, conversing easily Head: Normocephalic, Atraumatic Eyes: PERRL, conjunctivae normal, anicteric sclerae ENMT: external ear and nose normal, oropharynx normal Neck: trachea midline, no thyromegaly normal visual inspection Respiratory: normal respiratory effort, lungs clear to auscultation, no wheeze, rales, rhonchi. Normal insp/exp effort, no accessory muscle use Cardiovascular: RRR, no murmur, no edema Vessels: no JVD or carotid bruit Chest: normal inspection of chest Abdomen: normal bowel sounds, soft, pain to palp RUQ, no rebound, guarding, rigidity, no hepatosplenomegaly Musculoskeletal: no cyanosis or clubbing, extremities motor strength 5/5 Skin: no rashes, warm and dry normal turgor Neurologic: PERRL, EOMI, accommodation nl, no face palsy, no dysarthria CN's II-XI intact bilaterally and moves all extremities Psychiatric: A+Ox3, dysuthymic affect Lymphatic: no cervical or axillary lymphadenopathy : deferred Results & Data Results & Data ([facility]) Vital Signs (Past 12 Hours) Vital Signs Temp Pulse Pulse Resp BP BP Pulse Ox 02/25/22 15:46 60 16 102/67 99 02/25/22 14:50 77 18 130/76 98 02/25/22 13:30 77 16 115/98 100 02/25/22 11:31 36.4 C L 111 H 16 115/78 98 Diagnostic Findings Gallbladder Ultrasound 02/25/22 12:28 US gallbladder HISTORY: 41 years-old Female RUQ pain . Right upper quadrant abdominal pain COMPARISON: 02/14/2022 TECHNIQUE: Multiple real-time sonographic images of the abdominal right upper quadrant were obtained assessing grayscale appearance and color flow FINDINGS: The visualized pancreas is unremarkable. The liver is within normal limits. Unremarkable gallbladder without cholelithiasis, wall thickening or pericholecystic fluid. Negative sonographic Sharif's sign. The common bile duct measures 8 mm. No intrahepatic biliary ductal dilation. Unremarkable sonographic appearance of the right kidney. IMPRESSION: 1. Normal sonographic appearance of the gallbladder. 2. The common bile duct is slightly dilated at 8 mm. Correlation with serum bilirubin recommended. ACT 112: Negative or not required by law. The above report was generated using voice recognition software. It may contain grammatical, syntax or spelling errors. Electronically signed by: Beau Love M.D. 02/25/2022 1:13 PM Medications Administered Medication List Lactated Ringer's (Lr) 1,000 mls @ 80 mls/hr IV .[id number] RAMÓN Stop: 02/26/22 03:44 Last Admin: 02/25/22 15:36 Dose: 80 mls/hr Documented by: [id number] Discontinued Medications Piperacillin Sod/Tazobactam Sod (Zosyn) 4.5 gm in 120 mls @ 240 mls/hr IV NOW ONE Stop: 02/25/22 15:47 Last Admin: 02/25/22 15:35 Dose: 240 mls/hr Documented by: [id number] Ketorolac Tromethamine (Ketorolac 30 Mg/Ml Vial) 30 mg IV NOW ONE Stop: 02/25/22 15:17 Last Admin: 02/25/22 15:35 Dose: 30 mg Documented by: [id number] Lorazepam (Lorazepam 2 Mg/1 Ml Vial) Confirm Administered Dose 1 mg .ROUTE .STK- MED ONE Stop: 02/25/22 16:23 Last Admin: 02/25/22 16:24 Dose: 1 mg Documented by: [id number] COVID-19 Results Results COVID-19 Adm Lab Results: RBC 4.86 M/uL (4.2-5.4) 02/25/22 WBC 5.72 K/uL (4.8-10.8) 02/25/22 Hgb 14.9 g/dL (12.0-16.0) 02/25/22 Hct 43.1 % (37-47) 02/25/22 Plt Count 278 K/uL (130-400) 02/25/22 Neutrophils (%) (Auto) 69.7 % 02/25/22 Lymphocytes (%) (Auto) 20.6 % 02/25/22 Monocytes # (Auto) 0.44 K/uL (0.11-0.59) 02/25/22 Eosinophils # (Auto) 0.08 K/uL (0-0.5) 02/25/22 Immature Granulocyte % (Auto) 0.3 % 02/25/22 Neutrophils # (Auto) 3.98 K/uL (1.4-6.5) 02/25/22 Lymphocytes # (Auto) 1.18 K/uL (1.2-3.4) L 02/25/22 Monocytes # (Auto) 0.44 K/uL (0.11-0.59) 02/25/22 Eosinophils # (Auto) 0.08 K/uL (0-0.5) 02/25/22 Basophils # (Auto) 0.02 K/uL (0-0.2) 02/25/22 Immature Granulocyte # (Auto) 0.02 K/uL (0.00-0.02) 02/25/22 Na 137 mmol/L (136-145) 02/25/22 K 4.0 mmol/L (3.5-5.1) 02/25/22 Cl 106 mmol/L (98-107) 02/25/22 CO2 25 mmol/L (21-32) 02/25/22 Anion Gap 6 (3-11) 02/25/22 BUN 14 mg/dl (6-23) 02/25/22 Creatinine 0.70 mg/dl (0.6-1.2) 02/25/22 BUN/Creatinine Ratio 20.0 (10-20) 02/25/22 Glucose Level 85 mg/dl (70-99(Fasting)) 02/25/22 Ca 9.1 mg/dl (8.5-10.1) 02/25/22 Total Bilirubin 1.5 mg/dl (0.2-1.0) H 02/25/22 AST/SGOT 11 U/L (13-39) L 02/25/22 ALT/SGPT 10 U/L (7-52) 02/25/22 Alkaline Phosphatase 75 U/L (34-104) 02/25/22 Total Protein 6.8 gm/dl (6.0-8.3) 02/25/22 Albumin 4.2 gm/dl (3.4-5.0) 02/25/22 Globulin 2.6 gm/dl (2.5-4.0) 02/25/22 Albumin/Globulin Ratio 1.6 (0.9-2) 02/25/22 SARS-CoV-2, RNA, NAAT NEGATIVE (NEGATIVE) 02/25/22 Code Status & VTE Plan Code Status FULL CODE VTE Prophylaxis Plan VTE Prophylaxis will be ordered: Yes Supervising Physician Co-Signing Physician Notes Patient is a 41-year-old female with history of opioid abuse, and tobacco use disorder and other medical problems presents with history of ongoing worsening abdominal pain since past several weeks. She was recently hospitalized for substance-induced mood disorder. Currently patient is not on any medications with taking her buprenorphine due to worsening abdominal pain which she was unsure if related to medications. Abdominal pain is predominantly right upper quadrant sometimes radiates to right shoulder. Please review HPI for complete details of presentation. Blood work mostly within normal limits except total bilirubin 1.5. Lipase is normal. hCG pending. Gallbladder ultrasound showed common bile duct dilated at 8 mm. MRCP is pending. On exam patient is moderately built and nourished, no apparent distress, normocephalic atraumatic, EOMI, normal breath sounds, clear to auscultation, S1-S2, no murmur, no pedal edema, abdomen soft, right upper quadrant tender, no guarding or rigidity, normal bowel sounds, alert, awake, oriented, grossly no focal deficits. Patient is admitted for management of uncontrolled right upper quadrant abdominal pain, hyperbilirubinemia, CBD dilation. MRCP currently pending. GI consulted. IV fluids, pain control. Keep her n.p.o. for now for MRCP. Further management based on MRCP. Avoid narcotics as able. I personally reviewed the record. Patient is interviewed and examined at bedside. Patient's care is coordinated with Rebekah Hutchinson PA-C. Please refer to the documentation above for details of patient's presentation and for discussion of other issues. (1) Abdominal pain Abdominal location: right upper quadrant Qualified Code(s): R10.11 - Right upper quadrant pain
[2022-02-25] MEDS ORDERED: ALUMINUM/MAGNESIUM SUSP 30 ML UDC PO PRN (17:32)
[2022-02-25] MEDS ORDERED: MAGNESIUM HYDROXIDE SUSP 30 ML UDC PO PRN (17:32)
[2022-02-25] MEDS ORDERED: ONDANSETRON INJ 2 MG/ML 2 ML VIAL IV PRN (17:32)
[2022-02-25] MEDS ORDERED: ACETAMINOPHEN 325 MG TAB PO PRN (17:32)
[2022-02-25] MEDS ORDERED: POLYETHYLENE (MIRALAX) 17 GM PACK PO PRN (17:32)
[2022-02-25] MEDS: LACTATED RINGER'S 1,000 ML IV SCH (18:47)
--- NOTE | 2022-02-25 19:30 | Magnetic Resonance Report ---
MR MRCP CLINICAL HISTORY: Right upper quadrant pain with nausea and vomiting for one week. Evaluate for wilian docholithiasis TECHNIQUE: Multiplanar multisequence MR images were obtained of the abdomen, followed by reconstruct ion of MRCP imaging. COMPARISON: Ultrasound of the right upper quadrant from 02/25/2022 FINDINGS: Liver: There is homogeneous signal intensity seen within the liver. No mass lesions are seen. There i s no evidence for intrahepatic or duct dilatation. Gallbladder: The gallbladder is well distended with no intraluminal calculi. There is no evidence for wall thickening or pericholecystic edema. Spleen: There is homogeneous signal throughout the splenic parenchyma. No mass lesions are seen. Pancreas: The pancreas is homogeneous in signal There is no evidence for a mass lesion. Kidneys: There is homogeneous signal throughout the renal parenchyma bilaterally. Adrenal glands: There is homogeneous signal demonstrated with no gross mass seen. Abdominal cavity: There is no gross bowel dilatation. There is no evidence for ascites or adenopathy. The aorta is normal in caliber. The visualized osseous structures, demonstrate no evidence of abnormal signal intensity. MRCP: The common bile duct is again mildly dilated measuring 8 mm. There is otherwise normal in cours e and caliber. This is most likely physiologic for patient. There is no intraluminal filling defects or evidence for choledocholithiasis. There is no intrahepatic or duct dilatation. The pancreatic duct is normal in course and caliber. IMPRESSION: 1. No evidence of biliary obstruction. ACT 112: Negative or not required by law. Electronically signed by: Sanford Guadalupe M.D. 02/25/2022 7:28 PM
[2022-02-25] MEDS: PIPERACILLIN/TAZOBACTAM 3.375 GM in DEXTROSE 5% 100 ML IV SCH (23:13)
[2022-02-26] MEDS: LACTATED RINGER'S 1,000 ML IV SCH ×2 (04:36→16:06)
[2022-02-26 07:23] LABS: Appearance Urine Cloudy (Clear); Bacteria Urine Automated 1+ (Negative); Bilirubin Urine Negative (Negative); Blood Urine Negative (Negative); Color Urine Yellow; Epithelial Cell Urine Auto >30 /lpf (0-5); Glucose Urine UA Negative (Negative); Ketones Urine Trace (Negative); Leukocyte Esterase Urine 1+ (Negative); Nitrite Urine Negative (Negative); Protein Urine Negative (Negative); RBC Urine Automated 0-4 /hpf (0-4); Specific Gravity Urine 1.025 (1.000-1.030); Urobilinogen Urine Negative (Negative)
[2022-02-26] MEDS: PIPERACILLIN/TAZOBACTAM 3.375 GM in DEXTROSE 5% 100 ML IV SCH (07:55)
[2022-02-26] MEDS: KETOROLAC TROMETHAMINE 15 MG/ML VIAL IV PRN ×2 (08:08→19:34)
[2022-02-26 08:42] LABS: Basophils # (auto) 0.01 K/uL (0-0.2); Basophils % (auto) 0.2 %; Eosinophils # (auto) 0.04 K/uL (0-0.5); Eosinophils % (auto) 0.7 %; Hematocrit (blood only) 39.1 % (37-47); Hemoglobin 13.6 g/dL (12.0-16.0); Immature Granulocytes # (auto) 0.01 K/uL (0.00-0.02); Immature Granulocytes % (auto) 0.2 %; Lymphocytes # (auto) 1.17 K/uL (1.2-3.4); Lymphocytes % (auto) 20.7 %; Mean Corpuscular Hemoglobin 30.6 pg (25-34); Mean Corpuscular Hgb Conc 34.8 g/dL (32-36); Mean Corpuscular Volume 88.1 fL (80-100); Mean Platelet Volume 9.7 fL (7.4-10.4); Monocytes # (auto) 0.34 K/uL (0.11-0.59); Neutrophils # (auto) 4.09 K/uL (1.4-6.5); Neutrophils % (auto) 72.2 %; Platelet Count 238 K/uL (130-400); RDW Coefficient of Variation 12.9 % (11.5-14.5); RDW Standard Deviation 41.5 fL (36.4-46.3); Red Blood Count 4.44 M/uL (4.2-5.4); White Blood Count 5.66 K/uL (4.8-10.8)
[2022-02-26 09:02] LABS: Albumin Globulin Ratio 1.6 (0.9-2); Albumin Level 3.6 gm/dl (3.4-5.0); BUN Creatinine Ratio 13.5 (10-20); Bilirubin Direct 0.1 mg/dl (0-0.2); Bilirubin,Total 1.8 mg/dl (0.2-1.0); Calcium 8.6 mg/dl (8.5-10.1); Est GFR (African American) 116.6 ml/min; Est GFR (Non-African American) 100.6 ml/min; Globulin 2.3 gm/dl (2.5-4.0); Total Protein 5.9 gm/dl (6.0-8.3)
--- NOTE | 2022-02-26 11:31 | Gastroenterology Progress Note ---
Date of Service February 26, 2022 Assessment & Plan (1) Abdominal pain: Plan: She has RUQ pain, weight loss and an US showed a normal GB but mild biliary ductal dilation. MRCP w similar findings. No evidence of bile stones or mass. Has OP GI appt on 03/02 and EGD abner March 05 and would recommend trying to keep that appt. Pt asks "what am I supposed to do about the pain - wait another week." She grabs her right lower ribs when asking the questions and says it is from her gallbladder. Regular diet - when I recommended that she try to eat lunch, she became angry, stating, "I've been in pain for 3 F'ing months and you expect me to try to eat." So, doubt that she will attempt to eat. Concerned that she may sign out AMA. Dr. Singh (primary) notified of pt agitation. GI will sign off. Please notify us of new/worsening GI issues. - If EGD is though necessary and urgent by the primary hospitalist service, please notify us and we will do our best to work her into the procedure schedule tomorrow - but at this time, objective clinic information to suggest that she needs an urgent EGD. Admission and Anticipated Discharge Date Admission Date: February 25, 2022 Supervising Physician Co-Signing Physician Notes The past two times when entering in the patient's room she is asking for pain medication. No acute anemia hematemesis or hematochezia is noted. Workup thus far for her abdominal pain show a borderlined cbd with no evidence of stones. Workup thus far shows no signs of cholecystitis or cholangitis. If broadedning the differential for her pain to include pudz- her hgb and bun have remained stable - would consider a PPI. An egd is schedule for her within the next week and there are no current alarm symptoms. It is possible she may have mild costochondritis given the localtion of the pain and tylenol with a ppi can be considered or even tramadol until her outpt gi appt. Subjective 41, female Admitted yesterday for abd pain, mild CBD dilation on US. MRCP overnight again with 8mm CBD, no stones. No abnormal GB imaging. Was sleeping soundly initially this morning, stopped by x 2 over 2 hrs while pt sleeping. At noon today pt was awake, crying. When asked what was wrong reported pain, that her gallbladder is inflamed. Became very agitated when I told her that her gallbladder is normal. Showed her printed copies of US and MRCP saying no gallbladder problems. Asks, then "what is my pain from." Review of Systems Review of Systems: ROS: Gen: +agitated, crying; talking about taking out her IV + weight loss, +reports being sick for 3 months, describes "not being well," but denies weakness, fevers Eyes: No eye redness, or pain, no recent vision changes Resp: No SOB, no cough Cardio: + palpitations/irregular beats, no chest pain GI: As per HPI : Denies pain on urination Skin: No jaundice, itching or new rashes A total of 12 systems were reviewed, all others (-) Physical Exam Physical Exam: remaindor of exam deferred due to pt aggitation Constitutional: well developed, + thin and well groomed Eyes: PERRL, conjunctivae normal, anicteric sclerae ENMT: external ear and nose normal, oropharynx normal Neurologic: awake; not confused Psychiatric: Mood: + anxious mood and + irritable mood Results & Data ([facility]) Vital Signs (Past 12 Hours) Vital Signs Temp Pulse Resp BP Pulse Ox 02/26/22 07:31 36.8 C 68 16 100/62 97 02/26/22 00:07 36.5 C 82 16 98/66 L 97 Laboratory Results WBC 5.72, Hb 14.9, Hct 43, plts 278, Na 137, K 4.0, Cl 106, CO2 25, BUN 14, Cr 0.7, glucose 85. T bili 1.5, Direct bili 0.1, AST 11, ALT 10, Alk Phos 75. Diagnostic Findings MRCP 02/25/22: The common bile duct is again mildly dilated measuring 8 mm. There is otherwise normal in course and caliber. This is most likely physiologic for patient. There is no intraluminal filling defects or evidence for choledocholithiasis. There is no intrahepatic or duct dilatation. The pancreatic duct is normal in course and caliber. US 02/25/22: 1. Normal sonographic appearance of the gallbladder. 2. The common bile duct is slightly dilated at 8 mm. Correlation with serum bilirubin recommended. (1) Abdominal pain Abdominal location: right upper quadrant Qualified Code(s): R10.11 - Right upper quadrant pain
[2022-02-26] MEDS: NICOTINE 21 MG/24 HR TDSY TD SCH (13:40)
[2022-02-26] MEDS: LIDOCAINE 5% 1 PATCH TD SCH (16:02)
[2022-02-26] MEDS: ACETAMINOPHEN 500 MG TAB PO SCH ×2 (16:04→23:21)
--- NOTE | 2022-02-26 16:37 | Hospitalist Progress Note ---
Date of Service February 26, 2022 Assessment & Plan (1) Abdominal pain: (2) Mood disorder: (3) History of narcotic addiction: Plan: Abdominal Pain Hyperbilirubinemia CBD dilatation ?if gallbladder pathology RUQ US: 8mm cbd dilation, T bili 1.5 consistently over last several weeks MRCP negative Gastroenterology consulted Scheduled for OP EGD on 03/05 May be able to expedite this during this admission Already established with Dr. Fang General surgery as OP, if EGD negative plan for possible Lap wilian pt also reports weight loss, nausea and inability to eat although this may also be related to her substance abuse issue and relationship stress resulting in living in a hotel. she is currently trying to ffind housing and is working with case workers. Stopping antibiotics and IVF at this time. Will keep NPO p MN in case GI can perform EGD tomorrow. IV toradol prn pain, or oral APAP Absolutely NO NARCOTICS given prior hx of narcotic addiction Avoid benzos , also Added scheduled APAP and lidocaine patch. Suspect possible referred pain vs MSK component. Updated floor nurse on the plan. Mood disorder recently hosp in psych dept for substance induced mood d/o felt to be 2/2 to possible w/drawl from abruptly stopping her buprenorphine currently not on any psych meds I do feel pt has underlying psych component to her sx Hx of narcotic addiction avoid narcs recently took herself of buprenorphine ~ 1 month ago DVT ppx: SCDS Dispo: med/surg PCP: Jenny Suarez FULL CODE Clotilde Singh DO [facility] Hospitalist Admission and Anticipated Discharge Date Admission Date: February 25, 2022 Subjective Liver function tests are not elevated. She does have a mildly elevated total bilirubin which is being fractionated, suspect Sigel. Symptoms are not causing her to have hematemesis, diarrhea, constipation and she is tolerating food. The only time she vomited was when she attempted to do a colonoscopy prep as a "cleanout.". Her pain is in the right lateral chest wall and is tender to the touch which refers around to her right upper back and right neck. Pain has been ongoing for 2 months. She has been sleeping in a hotel for the last month at least after a split from her partner. She was admitted to the hospital approximately 1 month ago for suicidal ideations and reports not feeling any better since discharge. She is not actively suicidal today. She reports tingling all over her body and claims to have severe uncontrolled anxiety. We discussed her addiction history and the fact that anxiety medications in the form of benzodiazepines are not appropriate for her at this time. As Toradol is helping, narcotics are also strongly encouraged to be avoided given her history. She is overall very frustrated as she does not understand the source of pain which is constantly there. Pain is worse with food. Review of Systems Review of Systems: All systems reviewed negative except as indicated above. Physical Exam Physical Exam: CONSTITUTIONAL: WNWD, vitals as above, generally well- appearing EYES: normal conjunctivae, no scleral icterus ENT: external ear and nose normal, MMM NECK: trachea midline, RESPIRATORY: clear to auscultation bilaterally, no crackles, rales or wheezes, normal respiratory effort CARDIOVASCULAR: regular rate and rhythm, S1 and 2 heard without murmurs, gallops or rubs, no JVD, no peripheral edema, CHEST: inspection of chest was normal GASTROINTESTINAL: soft, nontender, ND, no guarding MUSCULOSKELETAL: strength 5/5 throughout, head is normocephalic and atraumatic, neck supple, normal palpation of chest wall without tenderness SKIN: warm and dry, NEUROLOGIC: CN 2-12 grossly intact, no sensory deficit, normal cognition, normal speech, no tremor, no gross focal deficits. PSYCHIATRIC: alert cooperative and oriented to person, place and time. Results & Data Results & Data ([facility]) Vital Signs (Past 12 Hours) Vital Signs Temp Pulse Resp BP Pulse Ox 02/26/22 16:31 36.5 C 72 16 102/68 97 02/26/22 07:31 36.8 C 68 16 100/62 97 Laboratory Results Short CBC 02/26/22 Range/Units 08:13 WBC 5.66 (4.8-10.8) K/uL Hgb 13.6 (12.0-16.0) g/dL Hct 39.1 (37-47) % Plt Count 238 (130-400) K/uL BMP 02/26/22 08:13 Sodium 139 Potassium 4.0 Chloride 108 H Carbon Dioxide 27 BUN 10 Creatinine 0.74 Glucose 92 Calcium 8.6 Liver Function 02/26/22 Range/Units 08:13 Total Bilirubin 1.8 H (0.2-1.0) mg/dl Direct Bilirubin 0.1 (0-0.2) mg/dl AST 10 L (13-39) U/L ALT 9 (7-52) U/L Alkaline Phosphatase 61 (34-104) U/L Albumin 3.6 (3.4-5.0) gm/dl Urine 02/26/22 Range/Units 06:38 Urine Color Yellow Urine Appearance Cloudy A (Clear) Urine pH 6.0 (4.5-7.5) Ur Specific [place] 1.025 (1.000-1.030) Urine Protein Negative (Negative) Urine Glucose (UA) Negative (Negative) Medications Administered Current Inpatient Medications Acetaminophen (Acetaminophen 500 Mg Tab) 1,000 mg PO Q8H [facility] Stop: 03/28/22 14:44 Last Admin: 02/26/22 16:04 Dose: 1,000 mg Documented by: Al Hydrox/Mg Hydrox/Simethicone (Aluminum/Magnesium Susp 30 Ml Udc) 15 ml PO Q4H PRN PRN Reason: Dyspepsia Stop: 03/27/22 17:31 Ketorolac Tromethamine (Ketorolac Tromethamine 15 Mg/Ml Vial) 15 mg IV Q6H PRN PRN Reason: Pain Stop: 02/27/22 17:31 Last Admin: 02/26/22 08:08 Dose: 15 mg Documented by: Lidocaine (Lidocaine 5% 1 Patch) 1 patch TD QAM [facility] Stop: 03/28/22 14:44 Last Admin: 02/26/22 16:02 Dose: 1 patch Documented by: Magnesium Hydroxide (Magnesium Hydroxide Susp 30 Ml Udc) 30 ml PO Q12H PRN PRN Reason: Constipation Stop: 03/27/22 17:31 Miscellaneous (Remove Nicoderm Patch) 1 ea N/A DAILY@0859 [facility] Stop: 03/29/22 08:58 Miscellaneous (Remove Lidoderm Patch) 1 ea N/A DAILY@2100 [facility] Stop: 03/28/22 20:59 Nicotine (Nicotine 21 Mg/24 Hr Tdsy) 21 mg TD QAM [facility] Stop: 03/28/22 11:59 Last Admin: 02/26/22 13:40 Dose: 21 mg Documented by: Ondansetron HCl (Ondansetron Inj 2 Mg/Ml 2 Ml Vial) 4 mg IV Q6H PRN PRN Reason: Nausea Stop: 03/27/22 17:31 Polyethylene Glycol (Polyethylene (Miralax) 17 Gm Pack) 17 gm PO DAILY PRN PRN Reason: Constipation Stop: 03/27/22 17:31 (1) Abdominal pain Abdominal location: right upper quadrant Qualified Code(s): R10.11 - Right upper quadrant pain
[2022-02-27] MEDS: ACETAMINOPHEN 500 MG TAB PO SCH (06:02)
[2022-02-27 06:16] LABS: Albumin Globulin Ratio 1.6 (0.9-2); Albumin Level 3.5 gm/dl (3.4-5.0); BUN Creatinine Ratio 13.5 (10-20); Bilirubin Direct 0.2 mg/dl (0-0.2); Bilirubin,Total 0.9 mg/dl (0.2-1.0); Calcium 8.6 mg/dl (8.5-10.1); Est GFR (African American) 116.6 ml/min; Est GFR (Non-African American) 100.6 ml/min; Globulin 2.2 gm/dl (2.5-4.0); Potassium 3.8 mmol/L (3.5-5.1); Total Protein 5.7 gm/dl (6.0-8.3)
[2022-02-27] MEDS: LIDOCAINE 5% 1 PATCH TD SCH (08:05)
[2022-02-27] MEDS: NICOTINE 21 MG/24 HR TDSY TD SCH (08:06)
--- NOTE | 2022-02-27 10:48 | Surgery Consultation ---
Date of Consultation February 27, 2022 Assessment & Plan (1) Abdominal pain: Ultrasound and MRI images and results personally viewed by me She has no abnormalities on ultrasound or MRI, specifically no evidence of cholelithiasis Agree with GI, I think an outpatient EGD is indicated If she has not had a HIDA scan, I would recommend an outpatient HIDA scan with Kinevac injection to rule out biliary dyskinesia as a cause of her abdominal pain She does state she has seen [facility] general surgery as an outpatient and they are awaiting EGD results prior to considering cholecystectomy There is no surgical cause for her abdominal pain We will advance her diet and have her follow-up with GI as an outpatient Please call with any questions or concerns History of Present Illness Reason for Consultation: Abdominal pain Attending Physician: Clotilde Singh DO History of Present Illness This is a 41-year-old female who presented to the emergency room 2 days ago with right-sided abdominal pain for 3 months. She describes this as sharp abdominal pain that is so bad it causes visual changes. She denies any nausea or vomiting. She does have some constipation but is having bowel movements. She has had an exhaustive work-up for her abdominal pain including an ultrasound that did not reveal any gallstones and an MRCP that did not reveal any abnormalities. When talking to the patient she is unsure if she had a HIDA scan in the past. She does states she has an outpatient EGD scheduled for March 05 with gastroenterology. She is also seeing general surgery as an outpatient but is awaiting these results of the EGD to consider cholecystectomy. She denies any fevers or chills. Allergies Allergy/AdvReac Type Severity Reaction Status Date / Time Sulfa (Sulfonamide Allergy Unknown CAN'T Verified 02/25/22 15:38 Antibiotics) REMEMBER Home Medications Medication Instructions Recorded Confirmed Type No Known Home Medications 02/25/22 02/25/22 History Patient History Medical History Back pain History of narcotic addiction Polysubstance abuse Pyelonephritis Substance induced mood disorder Suicidal ideation Tobacco abuse Surgical History History of tubal ligation Family History Grandfather (Maternal) Cancer Social History Smoking Status: Current some day smoker Tobacco Type: Cigarettes Years Smoked: 8; Second Hand Exposure: Yes; Do You Dip or Chew Tobacco: No; Tobacco Cessation Education Requested by Patient: No Hx Alcohol Use: No Hx Substance Use: No Preferred Language: Peruvian Communication Ability: Effective Under Cutter Required: No Beliefs That Will Affect Care: None marital status: Single Current Living Situation: Alone current occupational status: employed current occupation: [employer] Other Information That Helps Us Care for You: No Feels Safe at Home: Yes Assistive Devices: None Review of Systems Review of Systems: All systems reviewed negative except as indicated above. Physical Exam Constitutional: WD/WN, vitals as above Eyes: PERRL, conjunctivae normal, anicteric sclerae ENMT: external ear and nose normal, oropharynx normal Neck: trachea midline, no thyromegaly Respiratory: normal respiratory effort, lungs clear to auscultation Cardiovascular: RRR, no murmur, no edema Gastrointestinal (Abdomen): normal bowel sounds, soft, nontender, no hepatosplenomegaly Inspection/Auscultation: abdomen normal to inspection; abdomen not distended Percussion/Palpation: + abdomen tender (Generalized) and abdomen soft; no guarding, abdomen not rigid and no hernia Musculoskeletal: no cyanosis or clubbing, extremities motor strength 5/5 Skin: no rashes, warm and dry Neurologic: PERRL, EOMI, accommodation nl, no face palsy, no dysarthria Psychiatric: Actively crying Results & Data ([facility]) Vital Signs (Past 12 Hours) Vital Signs Temp Pulse Resp BP Pulse Ox 02/27/22 07:25 36.6 C 71 20 106/68 98 Diagnostic Findings US gallbladder HISTORY: 41 years-old Female RUQ pain . Right upper quadrant abdominal pain COMPARISON: 02/14/2022 TECHNIQUE: Multiple real-time sonographic images of the abdominal right upper quadrant were obtained assessing grayscale appearance and color flow FINDINGS: The visualized pancreas is unremarkable. The liver is within normal limits. Unremarkable gallbladder without cholelithiasis, wall thickening or pericholecystic fluid. Negative sonographic Sharif's sign. The common bile duct measures 8 mm. No intrahepatic biliary ductal dilation. Unremarkable sonographic appearance of the right kidney. IMPRESSION: 1. Normal sonographic appearance of the gallbladder. 2. The common bile duct is slightly dilated at 8 mm. Correlation with serum bilirubin recommended. MR MRCP CLINICAL HISTORY: Right upper quadrant pain with nausea and vomiting for one week. Evaluate for choledocholithiasis TECHNIQUE: Multiplanar multisequence MR images were obtained of the abdomen, followed by reconstruction of MRCP imaging. COMPARISON: Ultrasound of the right upper quadrant from 02/25/2022 FINDINGS: Liver: There is homogeneous signal intensity seen within the liver. No mass lesions are seen. There is no evidence for intrahepatic or duct dilatation. Gallbladder: The gallbladder is well distended with no intraluminal calculi. There is no evidence for wall thickening or pericholecystic edema. Spleen: There is homogeneous signal throughout the splenic parenchyma. No mass lesions are seen. Pancreas: The pancreas is homogeneous in signal There is no evidence for a mass lesion. Kidneys: There is homogeneous signal throughout the renal parenchyma bilaterally. Adrenal glands: There is homogeneous signal demonstrated with no gross mass seen. Abdominal cavity: There is no gross bowel dilatation. There is no evidence for ascites or adenopathy. The aorta is normal in caliber. The visualized osseous structures, demonstrate no evidence of abnormal signal intensity. MRCP: The common bile duct is again mildly dilated measuring 8 mm. There is otherwise normal in course and caliber. This is most likely physiologic for patient. There is no intraluminal filling defects or evidence for choledocholithiasis. There is no intrahepatic or duct dilatation. The pancreatic duct is normal in course and caliber. IMPRESSION: 1. No evidence of biliary obstruction. PG Care Time/CCT Total # of Minutes Spent Total Time Spent with Patient: Total time spent is greater than 50% in coordination of care (as documented) at patient's floor/unit and/or counseling patient: Coding Level of Care Code 39521 Inpt Consult Level 4 Diagnoses Abdominal pain R10.11 Abdominal location: right upper quadrant (1) Abdominal pain Abdominal location: right upper quadrant Qualified Code(s): R10.11 - Right upper quadrant pain
--- NOTE | 2022-02-27 13:18 | Discharge Summary ---
Date of Service February 27, 2022 Admission HPI Per Admitting Provider This is a 41-year-old female with history of previous opioid abuse and addiction, tobacco abuse who presents to ED secondary to abdominal pain x7 weeks. Patient has been seen emergency room multiple times over the last month. She also recently had a psychiatric admission from 01/26 to 01/30-second due to substance-induced mood disorder. She is a prior history of narcotic addiction and approximately 1 month ago stopped taking her buprenorphine. She stopped taking it due to having this right upper quadrant abdominal pain, although pain continue despite stopping medication. She also stopped all prescription medic ations including bentyl, Pepcid, and Carafate. She was seen in the outpatient setting and outpatient work-up has been arranged for gallbladder disease. Due to pain worsening she presented to ED today. Pain is located in the right upper quadrant with radiation around back and into right shoulder. She states pain is constant, 10 out of 10, nothing makes better, is unsure if made worse with meals , complains of constant nausea but denies vomiting. She denies sari colored stools. She fears moving her bowels due to pain but denies any hemorrhoids, melena or hematochezia. She further denies any fever, chills, sweats, lightheadedness, dizziness, chest pain, shortness breath, cough, URI symptoms, dysuria, increased urgency or frequency with urination or hematuria. She has not tried anything for pain at home. In ED patient remained hemodynamically stable. Lab work revealed elevated bilirubin at 1.5. Right upper quadrant ultrasound did reveal dilated CBD at 8 mm. Gastroenterology was consulted who recommended MRCP. She is scheduled for EGD on 03/05/2022. She also established with [facility] surgery Dr. Fang. His concern was possible gastritis or ulcer and that is why EGD was scheduled. She also completed a 5 day course of augmentin recently but she is unsure why. Principal Diagnosis abdominal pain Discharge Exam CONSTITUTIONAL: WNWD, vitals as above, generally well-appearing EYES: normal conjunctivae, no scleral icterus ENT: external ear and nose normal, MMM NECK: trachea midline, RESPIRATORY: clear to auscultation bilaterally, no crackles, rales or wheezes, normal respiratory effort CARDIOVASCULAR: regular rate and rhythm, S1 and 2 heard without murmurs, gal lops or rubs, no JVD, no peripheral edema, CHEST: inspection of chest was normal GASTROINTESTINAL: soft, nontender, ND, no guarding MUSCULOSKELETAL: strength 5/5 throughout, head is normocephalic and atraumatic, neck supple, normal palpation of chest wall without tenderness SKIN: warm and dry, NEUROLOGIC: CN 2-12 grossly intact, no sensory deficit, normal cognition, normal speech, no tremor, no gross focal deficits. PSYCHIATRIC: alert cooperative and oriented to person, place and time. Discharge Data Allergies Allergy/AdvReac Type Severity Reaction Status Date / Time Sulfa (Sulfonamide Allergy Unknown CAN'T Verified 02/25/22 15:38 Antibiotics) REMEMBER Consultations 02/25/22 13:51 Consult Gastroenterology Routine 02/25/22 14:01 ED Decision to Admit Stat 02/27/22 08:29 Consult General Surgery Routine Ordered Studies 02/25/22 12:28 US gallbladder Stat 02/25/22 14:58 MR MRCP Routine Hospital Course (1) Abdominal pain: (2) Mood disorder: (3) History of narcotic addiction: Abdominal Pain Hyperbilirubinemia CBD dilatation ?if gallbladder pathology RUQ US: 8mm cbd dilation, T bili 1.5 consistently over last several weeks MRCP negative Gastroenterology consulted Scheduled for OP EGD on 03/05 May be able to expedite this during this admission Already established with Dr. Fang General surgery as OP, if EGD negative plan for possible Lap wilian pt also reports weight loss, nausea and inability to eat although this may also be related to her substance abuse issue and relationship stress resulting in living in a hotel. she is currently trying to ffind housing and is working with case workers. Stopping antibiotics and IVF at this time. Will keep NPO p MN in case GI can perform EGD tomorrow. IV toradol prn pain, or oral APAP Absolutely NO NARCOTICS given prior hx of narcotic addiction Avoid benzos , also Added scheduled APAP and lidocaine patch. Suspect possible referred pain vs MSK component. Updated floor nurse on the plan. Mood disorder recently hosp in psych dept for substance induced mood d/o felt to be 2/2 to possible w/drawl from abruptly stopping her buprenorphine currently not on any psych meds I do feel pt has underlying psych component to her sx Hx of narcotic addiction avoid narcs recently took herself of buprenorphine ~ 1 month ago DVT ppx: SCDS Dispo: med/surg PCP: Jenny Suarez FULL CODE Clotilde Singh DO [facility] Hospitalist Discharge Plan Discharge Items Patient Disposition: Left Without Being Seen Reason For Visit: ABDOMINAL PAIN Discharge Diagnosis: abdominal pain Activity: Resume your previous activity Non-emergency contact: Primary Care Provider Call non-emergency contact if: you have any medication questions, your symptoms worsen, your pain is not controlled, your pain is worsening, your pain is unusual for you and your pain is concerning for you Follow-up/Referrals: Vannesa Chaves PA-C [Physician Quarry Manager] - (Date & Time 03/02/2022 1:30 PM Provider Vannesa Chaves PA-C Department Gastroenterology, [facility] ) Jenny Suarez DO [Primary Care Provider] - Diet: Regular Addtl Attending Provider Instructions: Patient left without being seen. Was seen by general surgeon prior to leaving. Their recommendation was to consider an outpatient HIDA scan to rule out biliary dyskineaia as a cause of her abdominal pain. Per gastroenterology she is scheduled as an outpatient for an EGD in the clinic next week. Pending Studies at Discharge: No Stand-Alone Forms: My [facility] [employer] Medications and DC Order Prescriptions: Continued No Known Home Medications RF: 0 Admission Data Admit Date/Time: 02/26/22 16:48 Attending Provider: Clotilde Singh Admit Provider: Nasir Obando Primary Care Provider: Jenny Suarez Other Providers: Shirley Savage ; Nasir Obando ; Lester Plasencia Other Interventions: Discharge Summary Assessment (RN) Last Done: 02/27/22 10:51
== END 2022-02-27 11:10 | disposition home or self-care (01) | DRG 392 ==
LOC: EDINP 11:27 → ED 11:27 → SUATTDRO 14:24 → EDINP 15:59 → 3N 17:34